=== PATIENT | male | born 1980 ===

== ENCOUNTER 2018-07-15 19:26 | Emergency (ER) | payer MEDICAID ==
[2018-07-15 19:41] VITALS: PULSE 66; RESP 18; TEMP 97.6; O2SAT 99
--- NOTE | 2018-07-15 20:28 | ED PDOC ---
HPI: General Adult Time Seen by Provider: 07/15/18 20:12 Chief Complaint (Nursing): Medical Clearance Chief Complaint (Provider): clearance for incarceration History Per: Patient History/Exam Limitations: no limitations Additional Complaint(s): 38 y/o male here in police custody for medical and psychiatric clearance for incarceration. Patient states he has a history of anemia and feels his numbers could be low due to intermittent blurred vision for a few weeks which he usually gets when he needs a transfusion. Denies headache, dizziness, extremity numbness/weakness, chest pain, shortness of breath, palpitations. Patient denies suicidal/homicidal ideations Past Medical History Reviewed: Historical Data, Nursing Documentation, Vital Signs Vital Signs: Last Vital Signs Temp 97.6 F 07/15/18 19:36 Pulse 66 07/15/18 19:36 Resp 18 07/15/18 19:36 BP 141/93 H 07/15/18 19:36 Pulse Ox 99 07/15/18 19:36 - Medical History PMH: Anemia, Anxiety, Back Problems, Depression, Chronic Pain - Surgical History Surgical History: Back Surgery - Family History Family History: States: No Known Family Hx - Living Arrangements Living Arrangements: With Family - Allergies Allergies/Adverse Reactions: Allergies Allergy/AdvReac Type Severity Reaction Status Date / Time No Known Allergies Allergy Verified 07/15/18 19:36 Review of Systems ROS Statement: Except As Marked, All Systems Reviewed And Found Negative Constitutional: Positive for: Weakness Physical Exam - Reviewed Nursing Documentation Reviewed: Yes Vital Signs Reviewed: Yes - Physical Exam Appears: Positive for: Well, Non-toxic, No Acute Distress Head Exam: Positive for: ATRAUMATIC, NORMAL INSPECTION, NORMOCEPHALIC Skin: Positive for: Normal Color Eye Exam: Positive for: Normal appearance ENT: Positive for: Normal ENT Inspection Cardiovascular/Chest: Positive for: Regular Rate, Rhythm Respiratory: Positive for: Normal Breath Sounds Gastrointestinal/Abdominal: Positive for: Normal Exam Back: Positive for: Normal Inspection Extremity: Positive for: Normal ROM Neurologic/Psych: Positive for: Alert, Oriented (x3) - Laboratory Results Result Diagrams: 07/15/18 21:20 - ECG O2 Sat by Pulse Oximetry: 99 - Progress ED Course And Treament: -cbc -crisis eval 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 Castillo Hgb normal Patient cleared for discharge into police custody Disposition - Clinical Impression Clinical Impression: Adjustment disorder, History of anemia - Patient ED Disposition Is Patient to be Admitted: No Counseled Patient/Family Regarding: Studies Performed, Diagnosis, Need For Followup - Disposition Disposition: Discharged/Transfer to Law Enforcement Disposition Time: 21:51 Condition: STABLE Additional Instructions: Patient medically and psychiatrically cleared for incarceration Instructions: Adjustment Disorder
[2018-07-15 21:37] LABS: HEMOGLOBIN 12.9 g/dL (12.0-18.0); MEAN CELL VOLUME 76.4 fl (80.0-94.0); MEAN CORPUSCULAR HEMOGLOBIN 24.1 pg (27.0-31.0); MEAN CORPUSCULAR HGB CONC 31.5 g/dL (33.0-37.0); RBC 5.37 Mil/uL (4.40-5.90); RED CELL DISTRIBUTION WIDTH 17.4 % (11.5-14.5); WHITE BLOOD COUNT 7.1 K/uL (4.8-10.8)
[2018-07-15 22:17] VITALS: BP 117/70
== END 2018-07-15 22:17 ==
LOC: H.ER 19:26
DX: F43.22 Adjustment disorder with anxiety (principal); D64.9 Anemia, unspecified; F32.9 Major depressive disorder, single episode, unspecified; G89.29 Other chronic pain